=== PATIENT | female | born 1980 | race African-American/Black ===

== ENCOUNTER 2019-04-20 15:35 | Outpatient (CLI) | payer OTHER ==
[~2019-04-20] VITALS: Ht 167.6 cm; Wt 122.5 kg
[~2019-04-20 15:35] MED LIST: PREN-52 PO
[2019-04-20 16:52] VITALS: BP 102/66; PULSE 72; RESP 15
[2019-04-20 16:58] VITALS: Ht 167.6 cm; Wt 122.5 kg
== END 2019-04-20 17:50 | disposition home or self-care (01) ==
LOC: OBT 15:35 → L-D 15:37 → PP1 16:41 → OBT 17:50
PROVIDERS: ATTEND Obstetrics & Gynecology Obstetrics
DX: O62.9 Abnormality of forces of labor, unspecified (principal); Z3A.35 35 weeks gestation of pregnancy
CPT/HCPCS: 81001; 87086; Z7500; Z7610; G0463